=== PATIENT | female | born 1990 | race Caucasian/White ===

== ENCOUNTER 2019-05-18 15:19 | Outpatient (REF) | payer OTHER, SELFPAY ==
[2019-05-18 23:33] LABS: Anion Gap 10.7 mmol/L (3-11); BUN 11 mg/dL (7-18); CO2 26.3 mmol/L (21.0-32.0); CREATININE 0.89 mg/dL (0.55-1.02); Calcium 9.1 mg/dL (8.5-10.1); Chloride 105 mmol/L (98-107); Glucose 117 mg/dL (70-100); Potassium 3.6 mmol/L (3.5-5.1); Sodium 142 mmol/L (136-145)
[2019-05-19 18:34] LABS: Estradiol 110 pg/ml
[2019-05-22 10:33] LABS: Testosterone, Free 2.05 ng/dL (0.06-1.06); Testosterone, Total 108 ng/dL (8-60)
== END 2019-05-18 15:39 ==
LOC: NCHCN 15:19
PROVIDERS: PCP Nurse Practitioner Family; Visit Provider Nurse Practitioner Family
DX: E66.9 Obesity, unspecified (principal); Z87.890 Personal history of sex reassignment
CPT/HCPCS: 80048; 84402; 84403; 82670

== ENCOUNTER 2019-06-29 14:50 | Outpatient (REF) | payer SELFPAY ==
[2019-06-29 21:59] LABS: Anion Gap 13.7 mmol/L (3-11); BUN 14 mg/dL (7-18); CO2 24.3 mmol/L (21.0-32.0); CREATININE 0.85 mg/dL (0.55-1.02); Calcium 9.5 mg/dL (8.5-10.1); Chloride 103 mmol/L (98-107); Glucose 81 mg/dL (74-106); Sodium 141 mmol/L (136-145)
[2019-07-02 09:32] LABS: Testosterone, Total 16 ng/dL (8-60)
== END 2019-06-29 15:10 ==
LOC: NCHCN 14:50
PROVIDERS: PCP Nurse Practitioner Family; Visit Provider Nurse Practitioner Family
DX: Z87.890 Personal history of sex reassignment (principal)
CPT/HCPCS: 80048; 84403

== ENCOUNTER 2020-12-26 23:19 | Outpatient (REF) | payer OTHER, SELFPAY ==
[2020-12-26 22:06] LABS: Anion Gap 12.1 mmol/L (3-11); BUN 14 mg/dL (7-18); CO2 24.9 mmol/L (21.0-32.0); Calcium 9.4 mg/dL (8.5-10.1); Chloride 105 mmol/L (98-107); Glucose 158 mg/dL (74-106); Potassium 3.9 mmol/L (3.5-5.1); Sodium 142 mmol/L (136-145)
[2020-12-27 16:45] LABS: Estradiol 99 pg/mL (See Note)
[2020-12-31 17:00] LABS: Testosterone, Free 0.88 ng/dL (0.06-1.06); Testosterone, Total 40 ng/dL (8-60)
== END 2020-12-26 23:20 | disposition home or self-care (01) ==
LOC: NCHCN 23:19
PROVIDERS: PCP Nurse Practitioner Family; Visit Provider Nurse Practitioner Community Health
DX: Z51.81 Encounter for therapeutic drug level monitoring (principal); Z87.890 Personal history of sex reassignment
CPT/HCPCS: 80048; 84402; 84403; 82670

== ENCOUNTER 2021-05-25 18:00 | Outpatient (REF) | payer OTHER, SELFPAY ==
[2021-05-25 21:55] LABS: HCT 40.2 % (36.0-46.0); HGB 13.1 g/dL (11.2-15.7); MCH 28.7 pg (27.0-33.0); MCHC 32.6 % (32.0-36.0); MPV 10.1 fL (8.0-11.0); Platelet Count 335 10^3/uL (130-400); RBC 4.57 10^6/uL (3.93-5.22); RDW 12.5 % (11.7-14.6); RDW-SD 40.1 fL; WBC 7.98 10^3/uL (4.4-10.8)
[2021-05-26 00:49] LABS: Vitamin D 25 Total 28.7 ng/mL (30-100)
[2021-05-26 06:38] LABS: Calcium 9.2 mg/dL (8.5-10.1)
[2021-05-26 06:39] LABS: Anion Gap 14.3 mmol/L (3-11); BUN 11 mg/dL (7-18); CO2 24.7 mmol/L (21.0-32.0); CREATININE 0.9 mg/dL (0.55-1.02); Chloride 104 mmol/L (98-107); Glucose 131 mg/dL (74-106); Potassium 3.7 mmol/L (3.5-5.1); Sodium 143 mmol/L (136-145); TSH (W/Ref FT4) 3.31 uIU/mL (0.36-3.74); Vitamin B12 474 pg/mL (193-986)
[2021-05-26 17:46] LABS: Estradiol 165 pg/mL (See Note)
[2021-05-31 16:34] LABS: Testosterone, Free 0.97 ng/dL (0.06-1.06); Testosterone, Total 44 ng/dL (8-60)
== END 2021-05-25 18:01 | disposition home or self-care (01) ==
LOC: NCHCN 18:00
PROVIDERS: PCP Nurse Practitioner Family; Visit Provider Nurse Practitioner Family
DX: R53.83 Other fatigue (principal); Z51.81 Encounter for therapeutic drug level monitoring
CPT/HCPCS: 80048; 82306; 84402; 84403; 85027; 82607; 82670; 84443

== ENCOUNTER 2022-09-26 21:16 | Outpatient (REF) | payer OTHER, SELFPAY ==
[2022-09-26 15:08] LABS: HCT 39.5 % (36.0-46.0); HGB 12.9 g/dL (11.2-15.7); MCH 28.5 pg (27.0-33.0); MCHC 32.7 % (32.0-36.0); MCV 87 fL (80-95); MPV 9.6 fL (8.0-11.0); Platelet Count 310 10^3/uL (130-400); RBC 4.53 10^6/uL (3.93-5.22); RDW-SD 41.1 fL; WBC 6.95 10^3/uL (4.4-10.8)
[2022-09-26 15:36] LABS: Hemoglobin A1C 5.3 % (<5.7)
[2022-09-26 15:56] LABS: ALT 37 U/L (14-59); AST 22 U/L (15-37); Alkaline Phosphatase 81 U/L (46-116); Anion Gap 10.9 mmol/L (3-11); BUN 16 mg/dL (7-18); Bilirubin, Total 0.2 mg/dL (0.2-1.0); CO2 26.1 mmol/L (21.0-32.0); Calcium 9.7 mg/dL (8.5-10.1); Calculated LDL 108 mg/dL (<100); Chloride 104 mmol/L (98-107); Cholesterol 184 mg/dL (<200); Estimated GFR 77.72 (mL/min/1.73m2); Ferritin 300 ng/mL (8-252); Glucose 98 mg/dL (74-106); HDL Cholesterol 46 mg/dL (40-60); Potassium 3.8 mmol/L (3.5-5.1); Sodium 141 mmol/L (136-145); Total Protein 8.3 g/dL (6.4-8.2); Triglyceride 153 mg/dL (<150)
[2022-09-26 22:30] LABS: Estradiol 106 pg/mL (See Note)
[2022-10-02 15:07] LABS: Testosterone, Total 82 ng/dL (8-60)
== END 2022-09-26 21:17 | disposition home or self-care (01) ==
LOC: NCHCN 21:16
PROVIDERS: PCP Nurse Practitioner Family; Visit Provider Nurse Practitioner Family
DX: Z00.00 Encounter for general adult medical examination without abnormal findings (principal); R53.83 Other fatigue; Z87.890 Personal history of sex reassignment; Z13.1 Encounter for screening for diabetes mellitus; R79.89 Other specified abnormal findings of blood chemistry
CPT/HCPCS: 80053; 80061; 84403; 85027; 82670; 82728; 83036; 84443

== ENCOUNTER 2022-10-11 10:53 | Outpatient (REF) | payer OTHER, SELFPAY ==
[2022-10-11 17:40] LABS: Anion Gap 9.2 mmol/L (3-11); BUN 15 mg/dL (7-18); CO2 25.8 mmol/L (21.0-32.0); Calcium 9.5 mg/dL (8.5-10.1); Chloride 104 mmol/L (98-107); Estimated GFR 77.72 (mL/min/1.73m2); FREE T4 1.14 ng/dL (0.76-1.46); Glucose 129 mg/dL (74-106); Potassium 3.9 mmol/L (3.5-5.1); Sodium 139 mmol/L (136-145); TSH 3.94 uIU/mL (0.36-3.74)
[2022-10-12 20:57] LABS: Thyroglobulin Antibody <15 U/mL (<=60); Thyroperoxidase Antibody <28 U/mL (<=60)
== END 2022-10-11 10:54 | disposition home or self-care (01) ==
LOC: NCHCN 10:53
PROVIDERS: PCP Nurse Practitioner Family; Visit Provider Nurse Practitioner Family
DX: R94.6 Abnormal results of thyroid function studies (principal)
CPT/HCPCS: 80048; 86376; 84439; 84443

== ENCOUNTER 2022-11-20 13:16 | Outpatient (REF) | payer OTHER, SELFPAY ==
[2022-11-20 14:50] LABS: Anion Gap 7.3 mmol/L (3-11); BUN 14 mg/dL (7-18); CO2 26.7 mmol/L (21.0-32.0); Calcium 9.4 mg/dL (8.5-10.1); Chloride 104 mmol/L (98-107); Estimated GFR 77.24 (mL/min/1.73m2); Glucose 152 mg/dL (74-106); Potassium 3.7 mmol/L (3.5-5.1); Sodium 138 mmol/L (136-145)
[2022-11-24 02:50] LABS: Testosterone, Total 107 ng/dL (8-60)
== END 2022-11-20 13:17 | disposition home or self-care (01) ==
LOC: NCHCN 13:16
PROVIDERS: PCP Nurse Practitioner Family; Visit Provider Nurse Practitioner Family
DX: E66.8 Other obesity (principal); Z51.81 Encounter for therapeutic drug level monitoring; Z87.890 Personal history of sex reassignment
CPT/HCPCS: 80048; 84403

== ENCOUNTER 2024-03-24 19:20 | Outpatient (REF) | payer BC, SELFPAY ==
[2024-03-24 17:40] LABS: Hemoglobin A1C 5.3 % (<5.7)
[2024-03-24 17:56] LABS: Anion Gap 10.3 mmol/L (3-11); BUN 10 mg/dL (7-18); CO2 24.7 mmol/L (21.0-32.0); Calcium 9.4 mg/dL (8.5-10.1); Calculated LDL 103 mg/dL (<100); Chloride 105 mmol/L (98-107); Cholesterol 165 mg/dL (<200); Estimated GFR 76.76 (mL/min/1.73m2); Glucose 101 mg/dL (74-106); HDL Cholesterol 43 mg/dL (40-60); Potassium 3.7 mmol/L (3.5-5.1); Sodium 140 mmol/L (136-145); TSH 4.88 uIU/Ml (0.36-3.74); Triglyceride 99 mg/dL (<150)
[2024-03-25 18:08] LABS: Estradiol 57 pg/mL (See Note)
[2024-03-28 19:05] LABS: Testosterone, Total 223 ng/dL (8-60)
== END 2024-03-24 19:21 | disposition home or self-care (01) ==
LOC: NCHCN 19:20
PROVIDERS: PCP Nurse Practitioner Family; Visit Provider Nurse Practitioner Family
DX: F64.9 Gender identity disorder, unspecified (principal); R94.6 Abnormal results of thyroid function studies; Z13.1 Encounter for screening for diabetes mellitus; G47.33 Obstructive sleep apnea (adult) (pediatric); Z13.220 Encounter for screening for lipoid disorders
CPT/HCPCS: 80048; 80061; 82670; 84403; 83036; 84443

== ENCOUNTER 2025-03-18 14:43 | Outpatient (REF) | payer MEDICAID, SELFPAY ==
[2025-03-18 21:31] LABS: Anion Gap 10.3 mmol/L (3-11); BUN 12 mg/dL (7-18); CO2 25.7 mmol/L (21.0-32.0); Calcium 9.2 mg/dL (8.5-10.1); Chloride 104 mmol/L (98-107); Estimated GFR 86.57 (mL/min/1.73m2); Glucose 124 mg/dL (74-106); Potassium 3.6 mmol/L (3.5-5.1); Sodium 140 mmol/L (136-145); TSH (W/Ref FT4) 3.39 uIU/mL (0.36-3.74)
== END 2025-03-18 14:44 | disposition home or self-care (01) ==
LOC: NCHCN 14:43
PROVIDERS: PCP Nurse Practitioner Family; Visit Provider Nurse Practitioner Family
DX: F64.9 Gender identity disorder, unspecified (principal); R94.6 Abnormal results of thyroid function studies
CPT/HCPCS: 80048; 84403; 82670; 84443